=== PATIENT | male | born 1965 | race African-American/Black ===

== ENCOUNTER 2018-11-24 05:53 | Day surgery (SDC) | payer OTHER ==
[~2018-11-24] VITALS: Ht 177.8 cm; Wt 95.2 kg
[2018-11-24 06:05] VITALS: BP 114/77
[2018-11-24 16:34] VITALS: BP 111/75
== END 2018-11-24 15:00 | disposition home or self-care (01) ==
LOC: DS 05:53 → OR 05:53 → DS 15:00
DX: S46.012A Strain of muscle(s) and tendon(s) of the rotator cuff of left shoulder, initial encounter (principal); M75.42 Impingement syndrome of left shoulder; W19.XXXA Unspecified fall, initial encounter; Y93.89 Activity, other specified; Y92.89 Other specified places as the place of occurrence of the external cause; Y99.8 Other external cause status; Z79.899 Other long term (current) drug therapy
CPT/HCPCS: C1713; J0690; J1170; J1885; J2175; J2250; J2405; J3010; J3490

== ENCOUNTER → 2020-01-16 | Day surgery (SDC) | payer OTHER ==
[~2020-01-16] VITALS: Ht 180.3 cm; Wt 95.2 kg
--- NOTE | 2020-01-16 06:15 | NUR ---
DR. WYMAN WAS CALLED YESTERDAY EVENING AND INFORMED THAT THE PATIENT HAD ORDER TO CHECK PT AND PTT, BUT [facility] DID NOT CHECK THOSE LAB. PER DR. WYMAN, PATIENT DOES NOT NEED PT/PTT THIS TIME.
[2020-01-16 06:39] VITALS: BP 136/89
[2020-01-16 14:44] VITALS: BP 136/85
== END | disposition home or self-care (01) ==
LOC: DS 06:28 → OR 07:30
PROVIDERS: ATTEND Neuromusculoskeletal Medicine, Sports Medicine
DX: M75.41 Impingement syndrome of right shoulder (principal); M75.121 Complete rotator cuff tear or rupture of right shoulder, not specified as traumatic; Z11.59 Encounter for screening for other viral diseases
CPT/HCPCS: C1713; J0330; J0690; J1170; J1885; J2175; J2250; J2310; J2405; J2704; J3010; J3490; J7120; U0003-CS